=== PATIENT | female | born 1975 | race Caucasian/White ===

== ENCOUNTER 2024-02-06 06:23 | Day surgery (SDC) | payer OTHER ==
[~2024-02-06] VITALS: Ht 165.1 cm; Wt 73.9 kg
[2024-02-06] MEDS ORDERED: MEPERIDINE 100 MG INJ. 100 MG/ML VIAL ONE (07:07)
[2024-02-06] MEDS ORDERED: MIDAZOLAM HCL 5 MG/5 ML VIAL ONE (07:07)
[2024-02-06 07:53] LABS: HCG,QUAL RESULT NEGATIVE (NEGATIVE)
[2024-02-06 08:30] VITALS: O2SAT 97
[2024-02-06 14:02] VITALS: BP_SYST 136; PULSE 20; RESP 20
== END 2024-02-06 09:40 | disposition home or self-care (01) ==
LOC: SDS 06:23 → SMU 06:23 → SDS 09:40
PROVIDERS: ATTEND Internal Medicine Gastroenterology
DX: Z12.11 Encounter for screening for malignant neoplasm of colon (principal); K63.5 Polyp of colon; K64.8 Other hemorrhoids; Z79.899 Other long term (current) drug therapy
CPT/HCPCS: 45385; 99152; 84703; 88305; G0378; J2250; J2175